=== PATIENT | female | born 1990 | race Caucasian/White ===

== ENCOUNTER 2025-03-30 09:21 | Inpatient (IN) | payer SELFPAY ==
[~2025-03-30] VITALS: Ht 182.9 cm; Wt 99.8 kg
[2025-03-30 10:04] LABS: BASOPHILS # (AUTO) 0.1 K/UL (0.0-0.2); BASOPHILS % (AUTO) 0.8 % (0.0-2.0); EOSINOPHILS # (AUTO) 0.1 K/uL (0.0-0.7); EOSINOPHILS % (AUTO) 1.2 % (0.0-7.0); HEMATOCRIT 42.5 % (31.2-41.9); HEMOGLOBIN 14.5 g/dL (10.9-14.3); LYMPHOCYTES # (AUTO) 1.6 K/uL (0.8-4.8); MEAN CORPUSCULAR HEMOGLOBIN 30.2 uug (24.7-32.8); MEAN CORPUSCULAR HGB CONC 34 g/dL (32.3-35.6); MEAN CORPUSCULAR VOLUME 88.4 fL (75.5-95.3); MONOCYTES # (AUTO) 0.8 K/uL (0.1-1.30); MONOCYTES % (AUTO) 8.4 % (0.0-11.0); NEUTROPHILS % (AUTO) 72.6 % (38.5-71.5); PLATELET COUNT (AUTO) 259 K/uL (179-408); RED BLOOD CELL COUNT(AUTO) 4.81 MIL/uL (3.63-4.92); RED CELL DISTRIBUTION WIDTH 12.9 % (12.3-17.7); WHITE BLOOD COUNT (AUTO) 9.6 K/uL (3.8-11.8)
[2025-03-30 10:05] LABS: CALCIUM 9.4 mg/dL (8.5-10.1); CREATININE 0.8 mg/dL (0.6-1.3); POTASSIUM 3.6 mmol/L (3.5-5.1)
[2025-03-30] MEDS ORDERED: diphenhydrAMINE 50 MG/1 ML VIAL ONE (10:07)
[2025-03-30] MEDS ORDERED: METOCLOPRAMIDE HCL 10 MG/2 ML VIAL ONE (10:07)
[2025-03-30 10:11] LABS: ALBUMIN 3.8 g/dL (3.4-5.0); BILIRUBIN,DIRECT 0.2 mg/dL (0.0-0.2); BILIRUBIN,TOTAL 0.6 mg/dL (0.2-1.0); TOTAL PROTEIN, SERUM 7.6 g/dL (6.4-8.2)
[2025-03-30] MEDS: IV D5/ 0.9% NACL 1,000 ML IV ONE (10:15)
[2025-03-30] MEDS: METOCLOPRAMIDE HCL 10 MG/2 ML VIAL IV ONE (10:15)
[2025-03-30] MEDS: diphenhydrAMINE 50 MG/1 ML VIAL IV ONE (10:15)
[2025-03-30] MEDS: IV NS 1000 ML 1,000 ML IV PRN (10:15)
[2025-03-30 11:47] LABS: *BILIRUBIN,URIN 2+ (NEGATIVE); *BLOOD, URINE 1+ (NEGATIVE); *CLARITY,URINE CLEAR (CLEAR); *COLOR,URINE YELLOW (YELLOW); *KETONES,URINE 3+ (NEGATIVE); *PROTEIN,URINE 1+ (NEGATIVE); LEUKOCYTE ESTERASE ,URINE NEGATIVE (NEGATIVE); NITRITE, URINE NEGATIVE (NEGATIVE); PH,URINE 5.5 (5.0-8.0); UGLUCOSE NEGATIVE (NEGATIVE)
[2025-03-30 11:53] LABS: *URINE HCG, QUAL NEGATIVE (NEGATIVE); BACTERIA,URINE FEW /HPF (NONE SEEN); SQUAMOUS EPITHELIAL CELL,UR FEW /HPF (NONE SEEN); URINE AMORPHOUS URATE FEW /HPF; WBC,URINE 0-3 /HPF (0-3)
[2025-03-30] MEDS ORDERED: DEXAMETHASONE SOD PHOSPHATE 4 MG INJ ONE (12:47)
[2025-03-30] MEDS ORDERED: PANTOPRAZOLE SODIUM 40 MG VIAL ONE (12:47)
[2025-03-30] MEDS: DEXAMETHASONE SOD PHOSPHATE 4 MG INJ IV ONE (12:55)
[2025-03-30] MEDS: PANTOPRAZOLE SODIUM IV 40 MG in IV DEXTROSE 5% 100 ML IV ONE (12:55)
[2025-03-30] MEDS ORDERED: LORAZEPAM 2 MG/1 ML VIAL ONE (13:08)
[2025-03-30] MEDS ORDERED: KETOROLAC TROMETHAMINE 30 MG INJ ONE (13:08)
[2025-03-30] MEDS: LORAZEPAM 2 MG/1 ML VIAL IV ONE (13:12)
[2025-03-30] MEDS: KETOROLAC TROMETHAMINE 30 MG INJ IVP ONE (13:12)
[2025-03-30] MEDS ORDERED: ACETAMINOPHEN 325 MG TABLET PO PRN (16:45)
[2025-03-30] MEDS ORDERED: REMEDY ESSENTIAL ZINC PASTE 113 GM TP PRN (16:45)
[2025-03-30 19:50] VITALS: BP 115/68; TEMP 99; O2SAT 98
[2025-03-30] MEDS: LORAZEPAM 0.5 MG TABLET PO SCH (21:52)
[2025-03-30] MEDS: PANTOPRAZOLE SODIUM 40 MG VIAL IV SCH (21:52)
[2025-03-30] MEDS: diphenhydrAMINE 50 MG/1 ML VIAL IV SCH (21:52)
[2025-03-30] MEDS: IV 1/2NS 1000 ML 1,000 ML IV PRN (21:54)
[2025-03-31 06:32] LABS: BASOPHILS # (AUTO) 0.4 K/UL (0.0-0.2); BASOPHILS % (AUTO) 3.6 % (0.0-2.0); EOSINOPHILS % (AUTO) 0.2 % (0.0-7.0); HEMOGLOBIN 13.5 g/dL (10.9-14.3); LYMPHOCYTES # (AUTO) 2.2 K/uL (0.8-4.8); LYMPHOCYTES % (AUTO) 22.2 % (20.5-51.5); MEAN CORPUSCULAR HEMOGLOBIN 30.3 uug (24.7-32.8); MEAN CORPUSCULAR HGB CONC 35 g/dL (32.3-35.6); MEAN CORPUSCULAR VOLUME 87.3 fL (75.5-95.3); MONOCYTES # (AUTO) 0.9 K/uL (0.1-1.30); MONOCYTES % (AUTO) 9.5 % (0.0-11.0); NEUTROPHILS # (AUTO) 6.4 K/uL (1.8-8.9); NEUTROPHILS % (AUTO) 64.5 % (38.5-71.5); PLATELET COUNT (AUTO) 217 K/uL (179-408); RED BLOOD CELL COUNT(AUTO) 4.47 MIL/uL (3.63-4.92); WHITE BLOOD COUNT (AUTO) 9.9 K/uL (3.8-11.8)
[2025-03-31 06:50] VITALS: BP 109/64; TEMP 98.8; O2SAT 98
[2025-03-31 06:50] LABS: CALCIUM 8.3 mg/dL (8.5-10.1); CREATININE 0.6 mg/dL (0.6-1.3); MAGNESIUM 1.7 mg/dL (1.8-2.4); PHOSPHOROUS 3.4 mg/dL (2.5-4.9)
[2025-03-31 07:06] LABS: POTASSIUM 2.7 mmol/L (3.5-5.1)
[2025-03-31 07:18] LABS: DIFFERENTIAL COMMENT 1
[2025-03-31] MEDS: ONDANSETRON 4 MG/2 ML VIAL IV PRN (08:38)
[2025-03-31] MEDS: METOCLOPRAMIDE HCL 10 MG/2 ML VIAL IV SCH (09:42)
[2025-03-31] MEDS ORDERED: POTASSIUM CHLORIDE 10 MEQ, LIDOCAINE 1% 1 ML in IV DEXTROSE 5% 100 ML IV SCH (10:00)
[2025-03-31] MEDS: MAGNESIUM SULFATE/D5W 100 ML IV SCH (11:02)
[2025-03-31 11:50] VITALS: BP 114/50; TEMP 98.8; O2SAT 97
[2025-03-31] MEDS ORDERED: LORAZEPAM 1 MG TABLET PO PRN (12:00)
[2025-03-31] MEDS ORDERED: diphenhydrAMINE 50 MG/1 ML VIAL IV SCH (12:00)
[2025-03-31] MEDS: POTASSIUM CHLORIDE 50 ML IV SCH (12:12)
[2025-03-31 16:05] VITALS: BP 132/63; TEMP 98.6; O2SAT 100
[2025-03-31 21:53] VITALS: BP 126/71; TEMP 98.6; O2SAT 99
[2025-04-01 04:39] VITALS: BP 105/58; TEMP 98.4; O2SAT 96
[2025-04-01 07:12] LABS: BASOPHILS # (AUTO) 0.1 K/UL (0.0-0.2); BASOPHILS % (AUTO) 1.1 % (0.0-2.0); EOSINOPHILS # (AUTO) 0.1 K/uL (0.0-0.7); HEMATOCRIT 38.2 % (31.2-41.9); HEMOGLOBIN 13.3 g/dL (10.9-14.3); LYMPHOCYTES # (AUTO) 1.7 K/uL (0.8-4.8); MEAN CORPUSCULAR HEMOGLOBIN 30.4 uug (24.7-32.8); MEAN CORPUSCULAR HGB CONC 35 g/dL (32.3-35.6); MEAN CORPUSCULAR VOLUME 87.6 fL (75.5-95.3); MONOCYTES # (AUTO) 0.6 K/uL (0.1-1.30); MONOCYTES % (AUTO) 10.7 % (0.0-11.0); NEUTROPHILS # (AUTO) 3.5 K/uL (1.8-8.9); NEUTROPHILS % (AUTO) 58.2 % (38.5-71.5); PLATELET COUNT (AUTO) 216 K/uL (179-408); RED BLOOD CELL COUNT(AUTO) 4.37 MIL/uL (3.63-4.92); RED CELL DISTRIBUTION WIDTH 13.1 % (12.3-17.7)
[2025-04-01 07:23] LABS: CALCIUM 8.8 mg/dL (8.5-10.1); CREATININE 0.6 mg/dL (0.6-1.3); POTASSIUM 3.1 mmol/L (3.5-5.1)
[2025-04-01 07:41] LABS: DIFFERENTIAL COMMENT 1
[2025-04-01] MEDS: POTASSIUM CHLORIDE 50 ML IV SCH (09:27)
[2025-04-01 10:47] VITALS: BP 116/67; TEMP 98.5; O2SAT 99
[2025-04-01] MEDS ORDERED: METO-295 PO (14:45)
[2025-04-01 15:38] VITALS: BP 112/69; TEMP 98.8; O2SAT 99
== END 2025-04-01 17:15 | disposition home or self-care (01) | DRG 392 ==
LOC: ER 09:21 → MEDSURG3 18:12
PROVIDERS: ADMIT Internal Medicine; ATTEND Internal Medicine
PROC: 05HD33Z Insertion of Infusion Device into Right Cephalic Vein, Percutaneous Approach (ICD-10-PCS; principal; 2025-03-30)
DX: R11.2 Nausea with vomiting, unspecified (principal); F12.10 Cannabis abuse, uncomplicated; E87.6 Hypokalemia; E83.42 Hypomagnesemia; F17.290 Nicotine dependence, other tobacco product, uncomplicated; Z79.84 Long term (current) use of oral hypoglycemic drugs
CPT/HCPCS: 36415; 83690; 83735; 84100; 84703; 85025; A4606; A4663; G0378; J1100; J1200; J1885; J2060; J2405; J2470; J2765; J3475; J3480; J7040; J7042